=== PATIENT | female | born 1975 | race Caucasian/White ===

== ENCOUNTER 2020-04-07 11:22 | Emergency (ER) | payer OTHER, SELFPAY ==
--- NOTE | 2020-04-07 12:01 | ER ---
Nurse's Notes [facility] Name: Iza Clemons Age: 44 yrs Sex: Female : 1975 Arrival Date: 04/07/2020 Time: 11:24 Bed Waiting Private MD: Diagnosis: Presentation: 04/07 11:42 Chief complaint: Patient states: Intermittent CP that began 1.5 weeks ago. Coronavirus ss screen: Client denies travel out of the [place] in the last 14 days. Pt refusing to wear a mask. Ebola Screen: Patient denies exposure to infectious person. Patient denies travel to an Ebola-affected area in the 21 days before illness onset. Initial Sepsis Screen: Does the patient meet any 2 criteria? No. Patient's initial sepsis screen is negative. Does the patient have a suspected source of infection? No. Patient's initial sepsis screen is negative. Risk Assessment: Do you want to hurt yourself or someone else? Patient reports no desire to harm self or others. Onset of symptoms was March 29, 2020. 11:42 Method Of Arrival: Ambulatory ss 11:42 Acuity: ROBEL 3 ss Historical: - Allergies: 11:43 Sulfa (Sulfonamide Antibiotics); ss - Immunization history:: Adult Immunizations unknown. - Social history:: Smoking status: Patient/guardian denies using tobacco, the patient reports quitting approximately 5 years ago. Vital Signs: 11:43 BP 134 / 96; Pulse 87; Resp 16; Temp 98.1(O); Pulse Ox 100% on R/A; Weight 115.21 kg; ss Height 5 ft. 3 in. (160.02 cm); Pain 3/10; 11:43 Body Mass Index 44.99 (115.21 kg, 160.02 cm) ss ED Course: 11:24 Patient arrived in ED. ds1 11:43 Triage completed. ss 11:43 Arm band placed on right wrist. ss Administered Medications: No medications were administered Outcome: 12:00 Patient left the ED. ss 12:00 Condition: refused to wear mask while waiting in the lobby. Chose to leave without ss treatment. Signatures: Dalila Welch ds1 Stephanie Olson RN RN ss
[2020-04-07 12:16] VITALS: BP 134/96; TEMP 98.1; O2SAT 100
== END 2020-04-07 12:00 | disposition left against medical advice (07) ==
LOC: ER 11:22
DX: R07.9 Chest pain, unspecified (principal); Z53.21 Procedure and treatment not carried out due to patient leaving prior to being seen by health care provider
CPT/HCPCS: 99281

== ENCOUNTER 2020-10-23 12:07 | Emergency (ER) | payer SELFPAY ==
--- NOTE | 2020-10-23 12:46 | RAD REPORT ---
EXAM DESCRIPTION: CT - Head Brain Wo Cont - 10/23/2020 12:39 pm CLINICAL HISTORY: confusion, migraine COMPARISON: MRI BRAIN W WO CONTRAST dated 12/03/2006 TECHNIQUE: Axial 5 mm thick images of the head were obtained without IV contrast. All CT scans are performed using dose optimization technique as appropriate and may include automated exposure control or mA/KV adjustment according to patient size. FINDINGS: No intracranial hemorrhage, mass, edema or shift of mid-line structures. No acute infarcti on changes seen. No abnormal extra-axial fluid collections. Ventricles are normal. Right-side mastoid air cells are clear. No acute paranasal sinus finding. Partial opacification of th e left mastoid air cells present. Similar degree of opacification noted back in 2006. No acute bony findings. IMPRESSION: Negative non-contrast CT head examination for acute or significant intracranial finding. Left side mastoid air cell opacification. Similar opacification was seen in 2006 and this is probably chronic. Correlation can be made with clinical presentation to determine if this might be recurrent, acute mastoiditis.
--- NOTE | 2020-10-23 12:56 | RAD REPORT ---
EXAM DESCRIPTION: RAD - Chest Single View - 10/23/2020 12:49 pm CLINICAL HISTORY: COUGH COMPARISON: None TECHNIQUE: AP portable chest image was obtained 10/23/2020 12:49 pm . FINDINGS: Lung volumes are low. Peripheral airspace opacification present in the mid and lower lung garcia. Each apex is spared of any measurable disease. This lung parenchymal pattern is commonly seen in COVID-19 pneumonia and correlation is needed with testing results. Failure or volume overload are not suspected. No cavitation in the lung parenchyma. No abnormal lymph adenopathy seen. Heart and vasculature are normal. No measurable pleural effusion and no pneumothorax. No acute bony abnormality seen. No acute aortic findings suspected. IMPRESSION: Bilateral peripherally distributed pneumonia pattern. In the current clinical environmen t, COVID-19 pneumonia would be the primary consideration and needs correlation with testing.
--- NOTE | 2020-10-23 15:54 | ER ---
Nurse's Notes [facility] Name: Iza Clemons Age: 44 yrs Sex: Female : 1975 Arrival Date: 10/23/2020 Time: 12:13 Bed Waiting Private MD: Diagnosis: Presentation: 10/23 12:16 Chief complaint: Spouse and/or significant other states: "She has been sick for the ss past few days, complaining of migraines and she was weak. She knocked on my door and asked me to take her to the dentist, but she meant doctor." 102 fever reported yesterday. Coronavirus screen: Client presents with at least one sign or symptom that may indicate coronavirus-19. Ebola Screen: Patient denies exposure to infectious person. Patient denies travel to an Ebola-affected area in the 21 days before illness onset. Pre-hospital glucose is not applicable to this patient. No acute neurological deficit is noted. Initial Sepsis Screen: Does the patient meet any 2 criteria? No. Patient's initial sepsis screen is negative. Does the patient have a suspected source of infection? No. Patient's initial sepsis screen is negative. Risk Assessment: Do you want to hurt yourself or someone else? Patient reports no desire to harm self or others. Onset of symptoms is unknown. 12:16 Method Of Arrival: Ambulatory ss 12:16 Acuity: ROBEL 2 ss Stroke Activation: Symptom onset > 6 hours Physician: Stroke Attending; Name: ; Notified At: 12:19; Arrived At: Physician: Chief Stroke Resident; Name: ; Notified At: 12:19; Arrived At: Physician: Stroke Resident; Name: ; Notified At: 12:19; Arrived At: Physician: ED Attending; Name: ; Notified At: 12:19; Arrived At: Physician: ED Resident; Name: ; Notified At: 12:19; Arrived At: Historical: - Allergies: 14:32 Sulfa (Sulfonamide Antibiotics); hb Vital Signs: 12:16 BP 150 / 118; Pulse 113; Resp 20; Temp 98.2(TE); Pulse Ox 95% on R/A; Height 5 ft. 3 ss in. (160.02 cm); ED Course: 12:13 Patient arrived in ED. mr 12:16 Arm band placed on right wrist. ss 12:20 Triage completed. ss 12:38 CT Head Brain wo Cont In Process Unspecified. EDMS 12:49 XRAY Chest (1 view) In Process Unspecified. EDMS Administered Medications: No medications were administered Outcome: 15:54 Patient left the ED. hb Signatures: Dispatcher [employer] EDMS Jessica Barros mr Stephanie Olson RN RN Alfreda Goodman RN RN hb
[2020-10-23 16:05] VITALS: BP 150/118; TEMP 98.2; O2SAT 95
== END 2020-10-23 15:54 | disposition left against medical advice (07) ==
LOC: ER 12:07
DX: Z53.21 Procedure and treatment not carried out due to patient leaving prior to being seen by health care provider (principal)
CPT/HCPCS: 70450; 71045; 99282

== ENCOUNTER 2021-02-24 12:48 | Emergency (ER) | payer OTHER ==
--- OUTSIDE RECORDS SUMMARY | 2021-02-24 12:59 | XMS REPORT | Continuity of Care Document ---
:1975 Author Organization [facility] t Address [address] [place] [address] Care Team Providers Name Role Phone Unavailable Unavailable Unavailable Problems This patient has no known problems. Allergies, Adverse Reactions, Alerts Allergy Allergy Status Severity Reaction(s) Onset Inactive Treating Comm ents Source Name Type Date Date Clinician NO KNOWN Drug Active [facility] ALLERGIE Class [facility] Medications This patient has no known medications. Procedures This patient has no known procedures. Encounters Start End Encounter Admission Attending Care Care Encounter Source Date/Time Date/Time Type Type Clinicians Facility Department ID 2020-10-23 2020-10-23 Emergency X [facility] ERT [id number] [facility] 16:09:00 16:09:00 [facility] Results This patient has no known results.
[2021-02-24 13:28] LABS: Absolute Lymphocytes (CBC) 1.6 K/uL (0.7-4.9); Basophils % 0.6 % (0-1.3); Hematocrit 37.9 % (36.0-45.0); Lymphocytes % 32.9 % (15.3-44.8); MPV 11.4 fL (7.6-11.3); RBC Red Blood Cell Count 5.19 M/uL (3.86-4.86)
[2021-02-24 13:37] LABS: Protime INR 1.05
[2021-02-24 13:46] LABS: ALT/SGPT 17 U/L (12-78); AST/SGOT 9 U/L (15-37); Albumin 3.2 g/dL (3.4-5.0); Alkaline Phosphatase 118 U/L (45-117); BUN Blood Urea Nitrogen 12 mg/dL (7-18); Bicarbonate 26 mmol/L (21-32); Bilirubin Direct < 0.1 mg/dL (0-0.2); Bilirubin Total 0.2 mg/dL (0.2-1.0); Glucose Level 351 mg/dL (74-106); NT PRO-BNP 68 pg/mL (<125); Potassium 3.9 mmol/L (3.5-5.1); Protein, Total 7.4 g/dL (6.4-8.2); Sodium Level 137 mmol/L (136-145); Troponin (Emerg Dept Use Only) < 0.02 ng/mL (0.0-0.045)
[2021-02-24 14:12] LABS: Blood Morphology Comment NOT SEEN (NOT SEEN); Platelet Estimate DECR; Platelets, Giant PRESENT; White Blood Cell Scan OK (OK)
--- NOTE | 2021-02-24 15:03 | RAD REPORT ---
EXAM DESCRIPTION: RAD - Chest Single View - 02/24/2021 2:08 pm CLINICAL HISTORY: CHEST PAIN Chest pain. COMPARISON: Chest Single View dated 10/23/2020 FINDINGS: Portable technique limits examination quality. The lungs are grossly clear. The heart is normal in size. No displaced fractures. IMPRESSION: No acute intrathoracic process suspected.
[2021-02-24] MEDS ORDERED: LIDOCAINE VISCOUS 2% SOLN 15 ML UDC ONE (15:45)
[2021-02-24] MEDS ORDERED: MAGNES/ALUMIN/SIMET 30ML UCUP ONE (15:45)
--- NOTE | 2021-02-24 16:28 | ER ---
Nurse's Notes [facility] Name: Iza Clemons Age: 45 yrs Sex: Female : 1975 Arrival Date: 02/24/2021 Time: 12:53 Bed 4 Private MD: Diagnosis: Chest pain, unspecified Presentation: 02/24 12:56 Chief complaint: Patient states: Chest tightness that began last night. Comes and goes ss in severity. Coronavirus screen: Client denies travel out of the [place] in the last 14 days. Ebola Screen: Patient denies exposure to infectious person. Patient denies travel to an Ebola-affected area in the 21 days before illness onset. Initial Sepsis Screen: Does the patient meet any 2 criteria? No. Patient's initial sepsis screen is negative. Does the patient have a suspected source of infection? No. Patient's initial sepsis screen is negative. Risk Assessment: Do you want to hurt yourself or someone else? Patient reports no desire to harm self or others. Onset of symptoms was February 23, 2021. 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 - Social history:: Smoking status: Patient/guardian denies using tobacco, the patient reports quitting approximately 6 years ago. - Family history:: not pertinent. - Hospitalizations: : No recent hospitalization is reported. Screenin:20 Abuse screen: Denies threats or abuse. Denies injuries from another. Nutritional jl7 screening: No deficits noted. Tuberculosis screening: No symptoms or risk factors identified. Fall Risk IV access (20 points). Total Herbert Fall Scale indicates No Risk (0-24 pts). Assessment: 13:00 General: Appears in no apparent distress. uncomfortable, Behavior is calm, cooperative. jl7 Pain: Complains of pain in chest Pain radiates to left arm and neck Pain currently is 3 out of 10 on a pain scale. at worst was 6 out of 10 on a pain scale. Quality of pain is described as squeezing, Pain began 1 day ago. Is intermittent. Neuro: Level of Consciousness is awake, alert, obeys commands, Oriented to person, place, time, situation. Cardiovascular: Patient's skin is warm and dry. Rhythm is sinus rhythm. Respiratory: Airway is patent Respiratory effort is even, unlabored, Respiratory pattern is regular, symmetrical. Derm: Skin is pink, warm \T\ dry. 14:00 Reassessment: Patient appears in no apparent distress at this time. No changes from 7 previously documented assessment. Patient and/or family updated on plan of care and expected duration. Pain level reassessed. Patient is alert, oriented x 3, equal unlabored respirations, skin warm/dry/pink. 15:00 Reassessment: Patient appears in no apparent distress at this time. No changes from jl7 previously documented assessment. Patient and/or family updated on plan of care and expected duration. Pain level reassessed. Patient is alert, oriented x 3, equal unlabored respirations, skin warm/dry/pink. 16:00 Reassessment: Patient appears in no apparent distress at this time. No changes from jl7 previously documented assessment. Patient and/or family updated on plan of care and expected duration. Pain level reassessed. Patient is alert, oriented x 3, equal unlabored respirations, skin warm/dry/pink. Vital Signs: 12:56 BP 134 / 98; Pulse 104; Resp 16; Temp 97.0(TE); Pulse Ox 100% on R/A; Weight 108.86 kg; Height 5 ft. 3 in. (160.02 cm); Pain 4/10; 13:20 BP 151 / 84; Pulse 85; Resp 15; Pulse Ox 99% ; Pain 3/10; jl7 13:49 BP 137 / 78; Pulse 85; Resp 15; Pulse Ox 99% ; jl7 16:05 BP 140 / 79; Pulse 80; Resp 15; Pulse Ox 97% ; jl7 12:56 Body Mass Index 42.51 (108.86 kg, 160.02 cm) ED Course: 12:53 Patient arrived in ED. mr 12:58 Triage completed. ss 12:58 Arm band placed on right wrist. ss 13:00 Feng Reyes MD is Attending Physician. rn 13:01 Etelvina Estevez RN is Primary Nurse. jl7 13:20 Patient has correct armband on for positive identification. Placed in gown. Bed in low jl7 position. Call light in reach. Side rails up X 1. 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 Pulse ox on. NIBP on. 13:20 Patient maintains SpO2 saturation greater than 95% on room air. jl7 13:24 Basic Metabolic Panel Sent. 5 13:24 D-Dimer Sent. [facility] 13:24 CBC with Diff Sent. [facility] 13:24 LFT's Sent. [facility] 13:24 NT PRO-BNP Sent. [facility] 13:24 PT-INR Sent. [facility] 13:24 Troponin (emerg Dept Use Only) Sent. [facility] 13:24 Initial lab(s) drawn, by me, sent to lab. EKG done, by ED staff, reviewed by Feng Reyes MD. Inserted saline lock: 20 gauge in right antecubital area, using aseptic technique. Blood collected. 14:08 XRAY Chest (1 view) In Process Unspecified. EDMS 15:54 Extremity Venous Uni Ltd US In Process Unspecified. EDMS 15:54 US Abdomen Limited In Process Unspecified. EDMS 16:27 Yassine Loya MD is Referral Physician. rn 16:50 No provider procedures requiring assistance completed. IV discontinued, intact, jl7 bleeding controlled, No redness/swelling at site. Pressure dressing applied. Administered Medications: 15:50 Drug: GI Cocktail without - (Maalox Suspension 30 ml, Lidocaine Liquid 2 % 15 jl7 ml) Route: PO; 16:49 Follow up: Response: No adverse reaction; Pain is unchanged, physician notified jl7 Outcome: 16:28 Discharge ordered by . rn 16:50 Discharged to home ambulatory. jl7 16:50 Condition: stable 16:50 Discharge instructions given to patient, Instructed on discharge instructions, follow up and referral plans. Demonstrated understanding of instructions, follow-up care. 16:50 Patient left the ED. jl7 Signatures: Dispatcher [employer] MIRIAM PapoJessica Roman, MD MD rn Smirch, Shelby, RN RN ss Martinez, Maria mh5 Leal, Jahala, RN RN jl7
--- NOTE | 2021-02-24 16:28 | EDPHYS ---
Physician Documentation [facility] Name: Iza Clemons Age: 45 yrs Sex: Female : 1975 Arrival Date: 02/24/2021 Time: 12:53 Bed 4 Private MD: ED Physician Feng Reyes HPI: 02/24 15:54 This 45 yrs old Female presents to ER via Ambulatory with complaints of Chest rn Tightness, Jaw Pain. 15:54 The patient or guardian reports chest pain that is located primarily in the substernal rn area. Onset: yesterday. The pain radiates to the left arm, the left shoulder, left neck. The chest pain is described as a heaviness. Duration: The patient or guardian reports multiple episodes, that are intermittent. Modifying factors: The symptoms are alleviated by nothing. the symptoms are aggravated by nothing. Severity of pain: At its worst the pain was moderate in the emergency department the pain has improved. The patient has experienced a previous episode. The patient has not recently seen a physician. 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 - Social history:: Smoking status: Patient/guardian denies using tobacco, the patient reports quitting approximately 6 years ago. - Family history:: not pertinent. - Hospitalizations: : No recent hospitalization is reported. ROS: 16:22 Constitutional: Negative for fever, chills, and weight loss, Eyes: Negative for injury, rn pain, redness, and discharge, Neck: Negative for injury, and swelling, Cardiovascular: Negative for palpitations, and edema, Respiratory: Negative for shortness of breath, cough, wheezing, and pleuritic chest pain, Abdomen/GI: Negative for abdominal pain, nausea, vomiting, diarrhea, and constipation, Back: Negative for injury and pain, : Negative for injury, bleeding, discharge, and swelling, MS/Extremity: Negative for injury and deformity, Skin: Negative for injury, rash, and discoloration, Neuro: Negative for headache, weakness, and seizure. Exam: 16:22 Constitutional: This is a well developed, well nourished patient who is awake, alert, rn and in no acute distress. Head/Face: Normocephalic, atraumatic. Eyes: Periorbital areas with no swelling, redness, or edema. Neck: Trachea midline, no masses palpated, and no cervical lymphadenopathy. Supple, full range of motion without nuchal rigidity, or vertebral point tenderness. No Meningismus. Cardiovascular: Regular rate and rhythm. No pulse deficits. Respiratory: Speaking full sentences, unlabored. No increased work of breathing, no retractions or nasal flaring. Abdomen/GI: Soft, non-tender, negative Saenz sign, no epigastric or right upper quadrant tenderness noted. Skin: Warm, dry MS/ Extremity: Pulses equal, no cyanosis. Right lower extremity with mild larger circumference compared to left lower extremity. Neuro: Awake and alert, GCS 15, oriented to person, place, time, and situation. Cranial nerves II-XII grossly intact. Motor strength 5/5 in all extremities. Sensory grossly intact. Cerebellar exam normal. 16:22 ECG was reviewed by the Attending Physician. rn Vital Signs: 12:56 BP 134 / 98; Pulse 104; Resp 16; Temp 97.0(TE); Pulse Ox 100% on R/A; Weight 108.86 kg; ss Height 5 ft. 3 in. (160.02 cm); Pain 4/10; 13:20 BP 151 / 84; Pulse 85; Resp 15; Pulse Ox 99% ; Pain 3/10; jl7 13:49 BP 137 / 78; Pulse 85; Resp 15; Pulse Ox 99% ; jl7 16:05 BP 140 / 79; Pulse 80; Resp 15; Pulse Ox 97% ; jl7 12:56 Body Mass Index 42.51 (108.86 kg, 160.02 cm) ss MDM: 13:00 Patient medically screened. rn 16:22 Differential diagnosis: acute myocardial infarction, acute pericarditis, anxiety, rn coronary artery disease cholecystitis, Cholelithiasis costochondritis, esophagitis, gastritis, gastroesophageal reflux disease (GERD), peptic ulcer disease, pericarditis, pleurisy, pneumonia, pneumothorax, pulmonary embolus, stable angina, unstable angina. HEART Score: History: Moderately Suspicious (1), ECG: Non specific repolarization disturbance / LBTB / PM (1), Age: > 45 and < 65 years (1), Risk Factors: No Risk Factors Known (0), Troponin: < or = 1 x Normal Limit (0), Total Score = 3. Data reviewed: vital signs, nurses notes, lab test result(s), EKG, radiologic studies, and as a result, I will admit patient. Counseling: I had a detailed discussion with the patient and/or guardian regarding: the historical points, exam findings, and any diagnostic results supporting the discharge/admit diagnosis, the presence of at least one elevated blood pressure reading (>120/80) during this emergency department visit, lab results, radiology results, the need for further work-up and treatment in the hospital. Response to treatment: the patient's symptoms have mildly improved after treatment, and as a result, I will admit patient. ED course: Troponin negative, EKG without ischemia. Chest x-ray without pneumothorax or infection. Recommended admission to the hospital given no direct cause of her chest pain found in ER, and for further testing such as stress test. Patient declines. She states cannot stay in the hospital due to family reasons and also would be very uncomfortable in the hospital. Her plan is to follow-up with cardiology as an outpatient. Understands risks of not being admitted. Stressed to her the importance of returning if symptoms worsen or do not improve.. 02/24 13:10 Order name: Basic Metabolic Panel; Complete Time: 14:42 rn 02/24 13:10 Order name: CBC with Diff; Complete Time: 14:42 rn 02/24 13:10 Order name: LFT's; Complete Time: 14:42 rn 02/24 13:10 Order name: NT PRO-BNP; Complete Time: 14:42 rn 02/24 13:10 Order name: PT-INR; Complete Time: 14:42 rn 02/24 13:10 Order name: Troponin (emerg Dept Use Only); Complete Time: 14:42 rn 02/24 13:10 Order name: XRAY Chest (1 view); Complete Time: 15:11 rn 02/24 13:10 Order name: EKG; Complete Time: 13:11 rn 02/24 13:10 Order name: Cardiac monitoring; Complete Time: 13:24 rn 02/24 13:17 Order name: D-Dimer; Complete Time: 14:42 rn 02/24 14:12 Order name: CBC Smear Scan; Complete Time: 14:42 EDIL 02/24 15:12 Order name: Extremity Venous Uni Ltd US; Complete Time: 16:44 rn 02/24 15:12 Order name: US Abdomen Limited; Complete Time: 16:44 rn 02/24 13:10 Order name: EKG - Nurse/Tech; Complete Time: 13:24 rn 02/24 13:10 Order name: IV Saline Lock; Complete Time: 13:24 rn 02/24 13:10 Order name: Labs collected and sent; Complete Time: 13:24 rn 02/24 13:10 Order name: O2 Per Protocol; Complete Time: 13:24 rn 02/24 13:10 Order name: O2 Sat Monitoring; Complete Time: 13:24 rn EC:22 Rate is 89 beats/min. Rhythm is regular. QRS Machias is Normal. NE interval is normal. QRS rn interval is normal. QT interval is normal. No Q waves. T waves are Normal. No ST changes noted. Clinical impression: NSR w/ Non-specific ST/T Changes. Interpreted by me. Reviewed by me. Administered Medications: 15:50 Drug: GI Cocktail without - (Maalox Suspension 30 ml, Lidocaine Liquid 2 % 15 jl7 ml) Route: PO; 16:49 Follow up: Response: No adverse reaction; Pain is unchanged, physician notified jl7 Disposition Summary: 02/24/21 16:28 Discharge Ordered Location: Home rn Problem: new rn Symptoms: have improved rn Condition: Stable rn Diagnosis - Chest pain, unspecified rn Followup: rn - With: Yassine Loya MD - When: 2 - 3 days - Reason: Recheck today's complaints, Re-evaluation by your physician Discharge Instructions: - Discharge Summary Sheet rn - Nonspecific Chest Pain, Adult rn - Hypertension, Adult rn - Pain Without a Known Cause rn Forms: - Medication Reconciliation Form rn - Thank You Letter rn - Antibiotic inclusion internship - Prescription Opioid Use rn Signatures: Dispatcher [employer] Feng Goldman MD MD rn Smirch, Shelby, RN RN ss Leal, Jahala RN RN jl7
--- NOTE | 2021-02-24 16:43 | RAD REPORT ---
EXAM DESCRIPTION: US - Extremity Venous Uni Ltd - 02/24/2021 3:54 pm CLINICAL HISTORY: Pain;Swelling Leg swelling and edema. COMPARISON: EXT VENOUS W COMPRESSION SHELIA dated 01/03/2009 FINDINGS: Right lower extremity venous system was interrogated with Doppler technique. Normal flow, compressibility and augmentation was noted. There is no DVT present. IMPRESSION: No evidence of right lower extremity deep venous thrombosis.
--- NOTE | 2021-02-24 16:44 | RAD REPORT ---
EXAM DESCRIPTION: US - Abdomen Exam Limited - 02/24/2021 3:55 pm CLINICAL HISTORY: chest pain, rule out cholelithiasis Abdominal pain COMPARISON: No comparisons FINDINGS: The gallbladder is mildly contracted and demonstrates no gallstones. No pericholecystic fl uid or gallbladder wall thickening. The common bile duct is normal measuring 2 mm. The liver demonstrates no findings of intrahepatic biliary dilatation. IMPRESSION: Unremarkable examination.
[2021-02-24 17:00] VITALS: TEMP 97
[2021-02-24 17:15] VITALS: BP 140/79; O2SAT 97
--- NOTE | 2021-02-26 08:13 | EKG ---
Test Date: 2021-02-24 Test Time: 13:11:16 Art Editor: LAURA MEASUREMENT RESULTS: Intervals: Rate: 89 TN: 164 QRSD: 72 QT: 366 QTc: 445 Winston: P: 56 TN: 164 QRS: 66 T: 64 INTERPRETIVE STATEMENTS: Normal sinus rhythm Septal infarct, age undetermined Abnormal ECG No previous ECG available for comparison Electronically Signed On 02-26-21 08:11:19 [employer]OL AND DIE ASSEMBLER by Calixto Redding
== END 2021-02-24 16:50 | disposition home or self-care (01) ==
LOC: ER 12:48
DX: R07.9 Chest pain, unspecified (principal); Z88.2 Allergy status to sulfonamides
CPT/HCPCS: 36415; 71045; 76705; 80048; 80076; 83880; 84484; 85025; 85379; 85610; 93005; 93971; 99285

== ENCOUNTER 2023-06-24 18:40 | Emergency (ER) | payer OTHER ==
--- OUTSIDE RECORDS SUMMARY | 2023-06-24 18:43 | XMS REPORT | Continuity of Care Document ---
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
--- NOTE | 2023-06-24 19:44 | ER ---
Nurse's Notes [facility] Name: Iza Clemons Age: 47 yrs Sex: Female : 1975 Arrival Date: 06/24/2023 Time: 18:40 Bed 11 Private MD: Diagnosis: Cellulitis of finger Presentation: 06/23 18:49 Chief complaint: Patient states: shooting left hand pain that started today. as6 Coronavirus screen: At this time, the client does not indicate any symptoms associated with coronavirus-19. Ebola Screen: No symptoms or risks identified at this time. Initial Sepsis Screen: Does the patient meet any 2 criteria? No. Patient's initial sepsis screen is negative. Does the patient have a suspected source of infection? No. Patient's initial sepsis screen is negative. Risk Assessment: Do you want to hurt yourself or someone else? Patient reports no desire to harm self or others. Onset of symptoms was June 24, 2023. 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 - Infectious Disease History:: Denies. - Social history:: Smoking status: Patient/guardian denies using tobacco, the patient reports quitting approximately 9 years ago. Screenin:06 [facility] ED Fall Risk Assessment (Adult) History of falling in the last 3 months, tl4 including since admission No falls in past 3 months (0 pts) Confusion or Disorientation No (0 pts) Intoxicated or Sedated No (0 pts) Impaired Gait No (0 pts) Mobility Assist Device Used No (0 pt) Altered Elimination No (0 pt) Score/Fall Risk Level 0 - 2 = Low Risk Oriented to surroundings, Maintained a safe environment, Educated pt \T\ family on fall prevention, incl call for assistance when getting out of bed, Assessed \T\ reinforced patient's understanding of fall precautions. Abuse screen: Denies threats or abuse. Denies injuries from another. Nutritional screening: No deficits noted. Tuberculosis screening: No symptoms or risk factors identified. Assessment: 19:27 General: Appears in no apparent distress. Behavior is calm, cooperative. Pain: tl4 Complains of pain in left hand. Neuro: Level of Consciousness is awake, alert, obeys commands, Oriented to person, place, time, situation, Moves all extremities. Gait is steady, Speech is normal. Cardiovascular: Capillary refill < 3 seconds Patient's skin is warm and dry. Respiratory: Airway is patent Respiratory effort is even, unlabored, Respiratory pattern is regular, symmetrical, Breath sounds are clear bilaterally. GI: No signs and/or symptoms were reported involving the gastrointestinal system. : No signs and/or symptoms were reported regarding the genitourinary system. EENT: No signs and/or symptoms were reported regarding the EENT system. Derm: No signs and/or symptoms reported regarding the dermatologic system. Musculoskeletal: Reports pain in left hand since this morning. Vital Signs: 18:49 BP 132 / 81; Pulse 94; Resp 18 S; Temp 97.8(TE); Pulse Ox 99% on R/A; Weight 92.99 kg as6 (R); Height 5 ft. 3 in. (R); Pain 4/10; 19:54 BP 125 / 72; Pulse 80; Resp 18; Temp 98(O); Pulse Ox 99% on R/A; Pain 6/10; tl4 18:49 Body Mass Index 36.31 (92.99 kg, 160.02 cm) as6 18:49 Pain Scale: Adult as6 19:54 Pain Scale: Adult tl4 ED Course: 18:42 Patient arrived in ED. im 18:46 Joshua Ashby MD is Attending Physician. ec2 18:49 Arm band placed on. as6 18:51 Triage completed. as6 19:01 Suresh Causey, ROXANNA is Primary Nurse. tl4 19:07 Patient has correct armband on for positive identification. Bed in low position. Call tl4 light in reach. Side rails up X 1. Provided Education on: ED process. 19:29 Door closed. Moved to private room. Pillow given. tl4 19:29 No provider procedures requiring assistance completed. tl4 19:56 Patient did not have IV access during this emergency room visit. tl4 Administered Medications: 19:54 Drug: Doxycycline PO 100 mg PO once Route: PO; tl4 19:56 Follow up: Response: No adverse reaction; Medication administered at discharge. tl4 Medication: 19:28 VIS not applicable for this client. tl4 Outcome: 19:44 Discharge ordered by . ec2 19:55 Discharged to home ambulatory, tl4 19:55 Condition: stable 19:55 Discharge instructions given to patient, Instructed on discharge instructions, follow up and referral plans. medication usage, Demonstrated understanding of instructions, follow-up care, medications, Prescriptions given X 1, 19:56 Patient left the ED. tl4 Signatures: Nick Ward RN RN as6 Lulu Baca Edwin, MD MD ec2 Suresh Causey RN RN tl4
--- NOTE | 2023-06-24 19:44 | EDPHYS ---
Physician Documentation [facility] Name: Iza Clemons Age: 47 yrs Sex: Female : 1975 Arrival Date: 06/24/2023 Time: 18:40 Bed 11 Private MD: ED Physician Joshua Ashby HPI: 06/23 19:44 This 47 yrs old Female presents to ER via Ambulatory with complaints of Hand Pain, ec2 Elbow pain. 19:44 Patient arrives today for evaluation of swelling and discomfort to the base of the left ec2 pinky finger. Patient reports that she noticed some redness as well as some swelling to the area. Patient reports no fevers or chills, no nausea or vomiting, no other symptoms. Patient went to pain in the left finger extending into the elbow.. 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 - Infectious Disease History:: Denies. - Social history:: Smoking status: Patient/guardian denies using tobacco, the patient reports quitting approximately 9 years ago. ROS: 19:44 Constitutional: as per hpi ec2 Exam: 19:44 Constitutional: GEN: NAD Head: atraumatic Eyes: EOMI Ears: External ears are ec2 normal. CV: regular rate LUNGS: no respiratory distress ABD: non-distended SKIN: Focal erythema noted over the distal aspect of the fifth metacarpal on the left hand. No significant swelling, no induration, no fluctuance appreciated, good range of motion of the distal digit MSK: no evidence of trauma NEURO: moves all extremities equally Vital Signs: 18:49 BP 132 / 81; Pulse 94; Resp 18 S; Temp 97.8(TE); Pulse Ox 99% on R/A; Weight 92.99 kg as6 (R); Height 5 ft. 3 in. (R); Pain 4/10; 19:54 BP 125 / 72; Pulse 80; Resp 18; Temp 98(O); Pulse Ox 99% on R/A; Pain 6/10; tl4 18:49 Body Mass Index 36.31 (92.99 kg, 160.02 cm) as6 18:49 Pain Scale: Adult as6 19:54 Pain Scale: Adult tl4 MDM: 18:52 Patient medically screened. ec2 19:44 Data reviewed: vital signs. ED course: Patient arrives today for evaluation of finger ec2 pain. Examination remarkable for skin findings as above. Presentation is with cellulitis. Considered other process such as flexor tenosynovitis as well as abscess however clinically this does not fit. Will discharge home, prescribe the patient antibiotics and have follow-up primary care doctor. Return precautions given.. Administered Medications: 19:54 Drug: Doxycycline PO 100 mg PO once Route: PO; tl4 19:56 Follow up: Response: No adverse reaction; Medication administered at discharge. tl4 Disposition Summary: 06/24/23 19:44 Discharge Ordered Notes: Location: Home ec2 Condition: Stable ec2 Diagnosis - Cellulitis of finger ec2 Followup: ec2 - With: Private Physician - When: - Reason: Re-evaluation by your physician Discharge Instructions: - Discharge Summary Sheet ec2 - Cellulitis, Adult, [id number] ec2 Forms: - Medication Reconciliation Form ec2 - Thank You Letter ec2 - Antibiotic Education ec2 - Prescription Opioid Use ec2 - Patient Portal Instructions ec2 - Leadership Thank You Letter ec2 Prescriptions: - Doxycycline Hyclate 100 mg Oral Tablet - take 1 tablet ORAL route every 12 hours; 20 tablet; Refills: 0, Product ec2 Selection Permitted Signatures: Nick Ward RN RN as6 Joshua Ashby MD MD ec2 Suresh Causey RN RN tl4
[2023-06-24] MEDS ORDERED: DOXYCYCLINE 100 MG CAP PO ONE (19:49)
[2023-06-25 05:21] VITALS: BP 125/72; TEMP 98; O2SAT 99
== END 2023-06-24 19:56 | disposition home or self-care (01) ==
LOC: ER 18:40
DX: L03.012 Cellulitis of left finger (principal); E11.9 Type 2 diabetes mellitus without complications; Z88.2 Allergy status to sulfonamides
CPT/HCPCS: 99283

== ENCOUNTER 2024-02-20 12:27 | Emergency (ER) | payer OTHER ==
--- OUTSIDE RECORDS SUMMARY | 2024-02-20 12:29 | XMS REPORT | Continuity of Care Document ---
Author Name Unknown Address [address] [place] [address] [facility] thconnect Address [address] [place] [address] Care Team Providers Care Environmental Test Technician Name Role Phone Pcp, Patient Does Not Have A Primary Care Physic oswaldo Mimi Alegre DO Attending Clinician Payers Payer Name Policy Type Policy Number Effective Date Expirati on Date Source Allergies, Adverse Reactions, Alerts Allergy Name Allergy Type Status Severity Reaction(s) Onset Date Inactive Date Treating Clinician Comments Source NO KNOWN ALLERGIE S Drug Class Active [facility] Social History Social Habit Start Date Stop Date Quantity Comments Source Sexual orientation [facility] Sex assigned at 1975 00:00:00 1975 00:00:00 [facility] Smoking Status Start Date Stop Date Source Tobacco smoking consumption unknown [facility] Medications Ordered Medication Name Filled Medication Name Start Date Stop Date Current Medication? Ordering Clinician Indication Dosage Frequency Signature (SIG) Comments Components Source butalbital- acetaminoph en-caff 50-325-40 mg tablet 8-16 00:00: 00 Yes [id number] 1{tbl} Take 1 tablet by mouth every 4 (four) hours as needed for Pain (scale 7-10). [facility] Encounters Start Date/Time End Date/Time Encounter Type Admission Type Attending Clinicians Care Facility Care Department Encounter ID Source 2023-12-09 00:00:00 2023-12-09 10:51:31 Letter (Out) Mimi Alegre [facility] ([facility]) [id number] [facility] 2020-10-23 16:09:00 2020-10-23 16:09:00 Emergency X [facility] E[facility] [id number] [facility]
--- NOTE | 2024-02-20 13:15 | RAD REPORT ---
EXAMINATION: CT HEAD WITHOUT CONTRAST CLINICAL INDICATION: Female, 48 years old.DIZZINESS TECHNIQUE: Axial CT images from the skull base to the vertex without intravenous contrast. Coronal an d sagittal reformatted images were created from the data set. One or more of the following dose reduction techniques were used: Automated exposure control, adjustment of the mA and/or kV according to patient size, and/or iterative reconstruction. Unless otherwise specified, incidental findings do not require dedicated imaging follow-up. [id number]. COMPARISON: No prior exam. FINDINGS: INTRACRANIAL: No acute intracranial hemorrhage. No hydrocephalus. No mass effect or midline shift. No significant white matter disease. VASCULATURE: No visualized abnormalities in the arteries or dural venous sinuses. SCALP/SKULL: No significant soft tissue or osseous abnormalities. SINUSES: Left mastoid fluid. IMPRESSION: No acute intracranial abnormality.
[2024-02-20] MEDS ORDERED: MECLIZINE HCL 12.5 MG TAB ONE (14:35)
--- NOTE | 2024-02-20 15:05 | ER ---
Nurse's Notes [facility] Name: Iza Clemons Age: 48 yrs Sex: Female : 1975 Arrival Date: 02/20/2024 Time: 12:27 Bed 3 Private MD: Diagnosis: Peripheral vertigo, dizziness Presentation: 02/19 12:45 Chief complaint: Patient states: since Friday room is spinning, having headaches and ko1 its getting worse. Coronavirus screen: At this time, the client does not indicate any symptoms associated with coronavirus-19. Ebola Screen: No symptoms or risks identified at this time. Initial Sepsis Screen: Does the patient meet any 2 criteria? No. Patient's initial sepsis screen is negative. Does the patient have a suspected source of infection? No. Patient's initial sepsis screen is negative. Risk Assessment: Do you want to hurt yourself or someone else? Patient reports no desire to harm self or others. Onset of symptoms is unknown. 12:45 Method Of Arrival: Ambulatory ko1 12:45 Acuity: ROBEL 3 ko1 Triage Assessment: 12:48 General: Appears in no apparent distress. Behavior is calm, cooperative, appropriate ko1 for age. Pain: Denies pain. 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 - Infectious Disease History:: Denies. - Social history:: Smoking status: Patient/guardian denies using tobacco, but has a distant history of tobacco abuse. Screenin:[address] [facility] ED Fall Risk Assessment (Adult) History of falling in the last 3 months, me1 including since admission No falls in past 3 months (0 pts) Confusion or Disorientation No (0 pts) Intoxicated or Sedated No (0 pts) Impaired Gait No (0 pts) Mobility Assist Device Used No (0 pt) Altered Elimination No (0 pt) Score/Fall Risk Level 0 - 2 = Low Risk Maintained a safe environment, Provided non-skid footwear, Hourly rounding (assess needs \T\ fall precautionary measures) done. Abuse screen: Denies threats or abuse. Nutritional screening: No deficits noted. Tuberculosis screening: No symptoms or risk factors identified. Assessment: 14:45 General: Appears comfortable, well groomed, well developed, well nourished, Behavior is me1 calm, cooperative, appropriate for age, Reports since Friday room is spinning, having headaches and its getting worse. Pain: Complains of pain in head Pain does not radiate. Pain currently is 5 out of 10 on a pain scale. Quality of pain is described as aching, Pain began 2-3 days ago. Is continuous. Neuro: Level of Consciousness is awake, alert, obeys commands, Oriented to person, place, time, situation, Appropriate for age. Neuro: Reports dizziness, since Friday. Cardiovascular: Patient's skin is warm and dry. Respiratory: Airway is patent Respiratory effort is even, unlabored, Respiratory pattern is regular, symmetrical. GI: No signs and/or symptoms were reported involving the gastrointestinal system. : No signs and/or symptoms were reported regarding the genitourinary system. EENT: No signs and/or symptoms were reported regarding the EENT system. Derm: Skin is intact, is healthy with good turgor, Skin is pink, warm \T\ dry. Musculoskeletal: No signs and/or symptoms reported regarding the musculoskeletal system. Vital Signs: 12:45 BP 122 / 78; Pulse 94; Resp 16; Temp 97.1; Pulse Ox 100% ; ko1 15:00 BP 119 / 75; Pulse 74; Resp 18; Pulse Ox 100% on R/A; me1 15:55 BP 127 / 67; Pulse 70; Resp 16; Temp 98.4; Pulse Ox 100% ; me1 ED Course: 12:31 Patient arrived in ED. al6 12:35 Arabella Mena MD is Attending Physician. sp3 12:48 Triage completed. ko1 12:48 Arm band placed on right wrist. Patient placed in an exam room, on a stretcher, on ko1 court recording monitor, on pulse oximetry, Patient notified of wait time. 13:08 CT Head Brain wo Cont In Process Unspecified. EDMS 14:04 Trang Guajardo RN is Primary Nurse. me1 14:45 Patient has correct armband on for positive identification. Bed in low position. Call me1 light in reach. Side rails up X2. Provided Education on: POC. Verbalized understanding.. Client placed on continuous cardiac and pulse oximetry monitoring. NIBP monitoring applied. Pulse ox on. NIBP on. 14:45 No provider procedures requiring assistance completed. Patient did not have IV access me1 during this emergency room visit. Administered Medications: 14:41 Drug: Meclizine PO 25 mg PO once Route: PO; me1 15:55 Follow up: Response: No adverse reaction; Marked relief of symptoms me1 Medication: 14:45 VIS not applicable for this client. me1 Outcome: 15:05 Discharge ordered by . sp3 16:05 Discharged to home ambulatory, with family, me1 16:05 Condition: stable 16:05 Discharge instructions given to patient, family, Instructed on discharge instructions, follow up and referral plans. medication usage, Demonstrated understanding of instructions, follow-up care, medications, Prescriptions given X 1, 16:05 Patient left the ED. me1 Signatures: Dispatcher [employer] EDArabella Andre MD MD sp3 Colleen Rojas, RN RN ko1 Trang Guajardo RN RN me1 Lisette Chauhan6 Corrections: (The following items were deleted from the chart) 14:45 12:45 Chief complaint: Patient states: since Friday room is spinning, having headaches me1 and its getting worse ko1
--- NOTE | 2024-02-20 15:05 | EDPHYS ---
Physician Documentation [facility] Name: Iza Clemons Age: 48 yrs Sex: Female : 1975 Arrival Date: 02/20/2024 Time: 12:27 Bed 3 Private MD: ED Physician Arabella Mena HPI: 02/19 14:06 This 48 yrs old Female presents to ER via Ambulatory with complaints of Dizziness. 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 She denies any significant headache, blurry vision, double vision, focal neurological deficits, numbness, weakness, or any other signs or symptoms on ROS at this time.. 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 - Infectious Disease History:: Denies. - Social history:: Smoking status: Patient/guardian denies using tobacco, but has a distant history of tobacco abuse. ROS: 14:08 Constitutional: Negative for fever, chills, and weight loss, Eyes: Negative for injury, sp3 pain, redness, and discharge, Neck: Negative for injury, pain, and swelling, Cardiovascular: Negative for chest pain, palpitations, and edema, Respiratory: Negative for shortness of breath, cough, wheezing, and pleuritic chest pain, Abdomen/GI: Negative for abdominal pain, nausea, vomiting, diarrhea, and constipation, Back: Negative for injury and pain, MS/Extremity: Negative for injury and deformity, Skin: Negative for injury, rash, and discoloration, Neuro: Negative for headache, weakness, numbness, tingling, and seizure, Psych: Negative for depression, anxiety, suicide ideation, homicidal ideation, and hallucinations, Allergy/Immunology: Negative for hives, rash, and allergies, Endocrine: Negative for neck swelling, polydipsia, polyuria, polyphagia, and marked weight changes, 14:08 All other systems are negative, Exam: 14:09 Constitutional: This is a well developed, well nourished patient who is awake, alert, sp3 and in no acute distress. Head/Face: Normocephalic, atraumatic. ENT: Nares patent. No nasal discharge, no septal abnormalities noted. External auditory canals are clear. Oropharynx with no redness, swelling, or masses, exudates, or evidence of obstruction, uvula midline. Mucous membranes moist. Neck: Trachea midline, no thyromegaly or masses palpated, and no cervical lymphadenopathy. Supple, full range of motion without nuchal rigidity, or vertebral point tenderness. No Meningismus. Chest/axilla: Normal chest wall appearance and motion. Nontender with no deformity. No lesions are appreciated. Cardiovascular: Regular rate and rhythm with a normal S1 and S2. No gallops, murmurs, or rubs. Normal PMI, no JVD. No pulse deficits. Respiratory: Lungs have equal breath sounds bilaterally, clear to auscultation and percussion. No rales, rhonchi or wheezes noted. No increased work of breathing, no retractions or nasal flaring. Abdomen/GI: Soft, non-tender, with normal bowel sounds. No distension or tympany. No guarding or rebound. No evidence of tenderness throughout. Back: No spinal tenderness. No costovertebral tenderness. Full range of motion. Skin: Warm, dry with normal turgor. Normal color with no rashes, no lesions, and no evidence of cellulitis. MS/ Extremity: Pulses equal, no cyanosis. Neurovascular intact. Full, normal range of motion. Psych: Awake, alert, with orientation to person, place and time. Behavior, mood, and affect are within normal limits. 14:09 Neuro: Normal neurological exam except for horizontal nystagmus mild in nature noted. No vertical nystagmus., Vital Signs: 12:45 BP 122 / 78; Pulse 94; Resp 16; Temp 97.1; Pulse Ox 100% ; ko1 15:00 BP 119 / 75; Pulse 74; Resp 18; Pulse Ox 100% on R/A; me1 15:55 BP 127 / 67; Pulse 70; Resp 16; Temp 98.4; Pulse Ox 100% ; me1 MDM: 12:55 Medical Screening Exam initiated sp3 14:09 Data reviewed: vital signs, nurses notes. ED course: 48-year-old female with vertigo. sp3 Consider peripheral versus central for differential diagnosis. CT scan of the head is negative and clinically given her history of vestibular canal with allergy, this is most likely peripheral. Will treat with meclizine p.o. and reassess.. 15:05 ED course: Patient improved with meclizine. Asking for discharge with prescription sp3 which we will arrange. Follow-up with ENT as needed. Patient knows return here for any worsening symptoms or other concerns at all. Vital signs normal on discharge.. 02/19 12:55 Order name: CT Head Brain wo Cont; Complete Time: 13:23 sp3 Administered Medications: 14:41 Drug: Meclizine PO 25 mg PO once Route: PO; me1 15:55 Follow up: Response: No adverse reaction; Marked relief of symptoms me1 Disposition Summary: 02/20/24 15:05 Discharge Ordered Notes: Location: Home sp3 Condition: Stable sp3 Diagnosis - Peripheral vertigo, dizziness sp3 Followup: sp3 - With: Private Physician - When: Upon discharge from the Emergency Department - Reason: Continuance of care Discharge Instructions: - Discharge Summary Sheet sp3 - Vertigo sp3 Forms: - Medication Reconciliation Form sp3 - Antibiotic Education sp3 - Prescription Opioid Use sp3 - Patient Portal Instructions sp3 - Leadership Thank You Letter sp3 Prescriptions: - Meclizine 25 mg Oral Tablet - take 1 tablet ORAL route every 8 hours As needed; 30 tablet; Refills: 0, sp3 Product Selection Permitted Signatures: Dispatcher [employer] EDArabella Andre MD MD sp3 Colleen Rojas RN RN ko1 Trang Guajardo RN RN me1
[2024-02-20 16:56] VITALS: O2SAT 100
[2024-02-20 16:59] VITALS: BP 127/67; TEMP 98.4
== END 2024-02-20 16:05 | disposition home or self-care (01) ==
LOC: ER 12:27
DX: H81.399 Other peripheral vertigo, unspecified ear (principal); E11.9 Type 2 diabetes mellitus without complications
CPT/HCPCS: 70450; 99284; J8597